=== PATIENT | female | born 1990 | race American Indian/Alaskan Native ===

== ENCOUNTER 2021-02-06 21:07 | Emergency (ER) | payer MEDICAID, OTHER ==
[~2021-02-06] VITALS: Ht 154.9 cm; Wt 86.2 kg
[2021-02-06 21:11] VITALS: BP 118/72
== END 2021-02-07 01:59 | disposition left against medical advice (07) ==
LOC: ER 21:14
DX: N39.0 Urinary tract infection, site not specified (principal); Z53.21 Procedure and treatment not carried out due to patient leaving prior to being seen by health care provider